=== PATIENT | male | born 1945 | race Two or more races ===

== ENCOUNTER 2018-09-17 20:13 | Emergency (ER) | END 2018-09-17 21:40 | disposition left against medical advice (07) | DX: J44.1 Chronic obstructive pulmonary disease with (acute) exacerbation (principal); E11.9 Type 2 diabetes mellitus without complications; I25.10 Atherosclerotic heart disease of native coronary artery without angina pectoris; F17.210 Nicotine dependence, cigarettes, uncomplicated | CPT/HCPCS: 36415; 71045; 80048; 80076; 83605; 83880; 84484; 85025; 87040; 93005; 94640; 96374; 99284; J2930 ==